=== PATIENT | male | born 1965 | race Caucasian/White ===

== ENCOUNTER 2017-05-27 10:59 | Emergency (ER) | payer OTHER ==
[~2017-05-27] VITALS: Ht 182.9 cm; Wt 108.9 kg
--- NOTE | 2017-05-27 11:05 | NUR ---
PT AMBULATORY TO ER BED 10. PRESENTS W/ LAC TO MARIBEL APPROX 9CM. MINIMAL BLEEDING. PT STATES UTD TO TETANUS SHOT FROM A PREVIOUS LAC. AWAITING MD LEE.
--- NOTE | 2017-05-27 11:38 | NUR ---
DR JEONG AT BEDSIDE FOR EVAL.
--- NOTE | 2017-05-27 12:25 | NUR ---
SANDRA AT BEDSIDE FOR LAC REPAIR.
--- NOTE | 2017-05-27 14:00 | NUR ---
LAVC REPAIR DONE. 13 SUTURES NOTED. WOUND CARE PROVIDED.
[2017-05-27 14:37] VITALS: BP 142/65
--- NOTE | 2017-05-27 14:37 | NUR ---
Patient discharged to home in stable condition. Written and verbal after care instructions given. Patient verbalizes understanding of instruction.
== END 2017-05-27 14:38 | disposition home or self-care (01) ==
LOC: ER 11:01
DX: S51.812A Laceration without foreign body of left forearm, initial encounter (principal); I10 Essential (primary) hypertension; Z88.0 Allergy status to penicillin; W26.0XXA Contact with knife, initial encounter; Y93.89 Activity, other specified; Y92.89 Other specified places as the place of occurrence of the external cause; Y99.9 Unspecified external cause status
CPT/HCPCS: 12034; 99284; A4606; A6402 ×3; A6403; J3490; Z7610

== ENCOUNTER 2017-05-29 10:02 | Emergency (ER) | payer OTHER ==
[~2017-05-29] VITALS: Ht 182.9 cm; Wt 108.9 kg
[2017-05-29 10:02] VITALS: BP 125/90
== END 2017-05-29 10:25 | disposition home or self-care (01) ==
LOC: ER 10:04
DX: S41.102D Unspecified open wound of left upper arm, subsequent encounter (principal); I10 Essential (primary) hypertension; I25.2 Old myocardial infarction; Z88.0 Allergy status to penicillin; Z76.0 Encounter for issue of repeat prescription
CPT/HCPCS: 99283; A4606; Z7610

== ENCOUNTER 2017-06-03 13:09 | Emergency (ER) | payer OTHER ==
[~2017-06-03] VITALS: Ht 182.9 cm; Wt 108.9 kg
[2017-06-03 13:12] VITALS: BP 141/66
== END 2017-06-03 13:59 | disposition home or self-care (01) ==
LOC: ER 13:11
DX: S51.812D Laceration without foreign body of left forearm, subsequent encounter (principal); I10 Essential (primary) hypertension; I25.2 Old myocardial infarction; Z88.0 Allergy status to penicillin
CPT/HCPCS: 99281; A4606; Z7610; Z7502